=== PATIENT | female | born 2005 | race African-American/Black ===

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

== ENCOUNTER 2025-01-08 15:54 | Emergency (ER) | payer MEDICAID ==
[~2025-01-08] VITALS: Ht 160 cm; Wt 91.0 kg
[2025-01-08 16:02] VITALS: BP 127/80; RESP 16; TEMP 36.8; O2SAT 100
[2025-01-08 16:06] VITALS: PULSE 100; O2SAT 100
[2025-01-08] MEDS: ACETAMINOPHEN 325MG TABLET PO ONE (17:10)
== END 2025-01-08 17:55 | disposition home or self-care (01) ==
LOC: ER 15:54
DX: M25.561 Pain in right knee (principal); X50.1XXA Overexertion from prolonged static or awkward postures, initial encounter; Y93.89 Activity, other specified; Y92.89 Other specified places as the place of occurrence of the external cause; Y99.8 Other external cause status
CPT/HCPCS: 73560; 99283

== ENCOUNTER 2025-04-20 20:35 | Emergency (ER) | payer MEDICAID ==
[~2025-04-20] VITALS: Ht 160 cm; Wt 91.0 kg
[2025-04-20 21:03] VITALS: O2SAT 100
[2025-04-20 21:05] VITALS: BP 119/68; PULSE 77; RESP 18; TEMP 36.7; O2SAT 99
[2025-04-20] MEDS ORDERED: ACET-2708 MT (22:02)
== END 2025-04-20 22:40 | disposition home or self-care (01) ==
LOC: ER 20:35
DX: G89.29 Other chronic pain (principal); M25.561 Pain in right knee
CPT/HCPCS: 73562; 99283